=== PATIENT | male | born 1975 | race Caucasian/White ===

== ENCOUNTER 2016-03-30 10:57 | Emergency (ER) | payer OTHER ==
[~2016-03-30] VITALS: Ht 180.3 cm; Wt 77.1 kg
[2016-03-30 10:57] VITALS: BP 134/83; PULSE 112; RESP 26; TEMP 97.8; O2SAT 97
--- NOTE | 2016-03-30 10:57 | NUR ---
BROUGHT BACK TO BED #2 AND TRIAGED. REPORT GIVEN TO TANVIR
--- NOTE | 2016-03-30 11:04 | NUR ---
DR CORTEZ AT BEDSIDE FOR EVALUATION
--- NOTE | 2016-03-30 11:05 | NUR ---
Pt AAOx4 c/o anxiety This AM. Pt h/o anxiety and panic attacks. Pt denies other significant med hx.
[2016-03-30] MEDS ORDERED: LORazepam 2 MG/ML VIAL (FOR ER USE) IVP ONE (11:15)
[2016-03-30] MEDS ORDERED: NACL 0.9% 1,000 ML IV ONE (11:15)
--- NOTE | 2016-03-30 11:23 | NUR ---
# 18 gauge angiocath placed to LAC. Use of asceptic technique. Opsite placed over site. Blood return noted. Blood for lab drawn from site. Flushed with 10 cc of normal saline. No evidence of infiltration noted. Patient tolerated well.
--- NOTE | 2016-03-30 11:50 | NUR ---
Pt tolerated medication well.
[2016-03-30 11:54] LABS: BASOPHILS % (AUTO) 0.4 % (0.0-2.0); EOSINOPHILS # (AUTO) 0.1 K/uL (0.0-0.4); EOSINOPHILS % (AUTO) 1.3 % (0.0-4.0); HEMATOCRIT 45.9 % (36-54); HEMOGLOBIN 15.5 g/dL (14.0-18.0); LYMPHOCYTES # (AUTO) 1.3 K/uL (1.0-5.5); LYMPHOCYTES % (AUTO) 17.7 % (20.5-51.5); MEAN CORPUSCULAR HEMOGLOBIN 32 pg (27-31); MEAN CORPUSCULAR HGB CONC 34 % (32-36); MEAN CORPUSCULAR VOLUME 95 fL (79.0-98.0); MONOCYTES # (AUTO) 0.5 K/uL (0.0-1.0); MONOCYTES % (AUTO) 6.6 % (1.7-9.3); NEUTROPHILS # (AUTO) 5.7 K/uL (1.8-7.7); PLATELET COUNT (AUTO) 239 K/uL (130-430); RED BLOOD CELL COUNT(AUTO) 4.84 MIL/uL (4.2-6.2); RED CELL DISTRIBUTION WIDTH 12.4 % (9.0-15.0); WHITE BLOOD COUNT (AUTO) 7.6 K/uL (4.8-10.8)
[2016-03-30 11:59] LABS: CREATININE 0.96 mg/dL (0.55-1.30); POTASSIUM 3.6 mmol/L (3.5-5.1)
[2016-03-30 12:04] LABS: ALBUMIN 4.2 g/dL (3.4-4.8); TOTAL BILIRUBIN 0.5 mg/dL (0.0-1.0)
--- NOTE | 2016-03-30 12:17 | NUR ---
Pt on stable condition, reports anxiety is improving.
[2016-03-30 12:41] VITALS: BP 124/71; PULSE 78; RESP 19; TEMP 97.2; O2SAT 99
--- NOTE | 2016-03-30 12:41 | NUR ---
Patient given written and verbal discharge instructions and verbalizes understanding. ER MD discussed with patient the results and treatment provided. Given copies of tests performed in ER. Patient in stable condition. ID arm band removed. IV catheter removed intact and dressing applied, no active bleeding. Rx of XANAX given. Patient educated on pain management and to follow up with PMD. Pain Scale 0/10. Opportunity for questions provided and answered.
== END 2016-03-30 12:41 | disposition home or self-care (01) ==
LOC: SED 10:57
DX: F41.0 Panic disorder [episodic paroxysmal anxiety] (principal); R03.0 Elevated blood-pressure reading, without diagnosis of hypertension
CPT/HCPCS: 36415; 71010; 80053; 84484; 85025; 93005; 96361; 96374; 99285; J2060; J7030

== ENCOUNTER 2022-09-15 12:34 | Emergency (ER) | payer BC, OTHER ==
[~2022-09-15] VITALS: Ht 180.3 cm; Wt 81.6 kg
[2022-09-15 12:36] VITALS: BP_SYST 158; PULSE 110; RESP 19; TEMP 98; O2SAT 99
--- NOTE | 2022-09-15 12:42 | NUR ---
Placed in room 02 . Placed on media monitor, blood pressure machine and pulse oximeter. To gown for exam. Side rails up. Report given to VALENTIN SHORT.
--- NOTE | 2022-09-15 12:55 | NUR ---
ER DR. VILLALPANDO AT THE BEDSIDE EXAMINING PT
[2022-09-15] MEDS ORDERED: LORazepam 2 MG/ML VIAL IVP ONE (13:15)
[2022-09-15 13:16] LABS: BASOPHILS % (AUTO) 0.6 % (0.0-2.0); EOSINOPHILS % (AUTO) 0.6 % (0.0-4.0); HEMATOCRIT 45.4 % (36-54); HEMOGLOBIN 15.7 g/dL (14.0-18.0); LYMPHOCYTES # (AUTO) 0.7 K/uL (1.0-5.5); LYMPHOCYTES % (AUTO) 9.2 % (20.5-51.5); MEAN CORPUSCULAR HEMOGLOBIN 36 pg (27-31); MEAN CORPUSCULAR HGB CONC 35 % (32-36); MEAN CORPUSCULAR VOLUME 103 fL (79.0-98.0); MONOCYTES # (AUTO) 0.6 K/uL (0.0-1.0); MONOCYTES % (AUTO) 7.6 % (1.7-9.3); NEUTROPHILS # (AUTO) 6.3 K/uL (1.8-7.7); PLATELET COUNT (AUTO) 200 K/uL (130-430); RED CELL DISTRIBUTION WIDTH 13.3 % (9.0-15.0); WHITE BLOOD COUNT (AUTO) 7.7 K/uL (4.8-10.8)
[2022-09-15 13:30] LABS: ANION GAP 11 (5-15); CALCIUM 9.1 mg/dL (8.4-11.0); CHLORIDE 98 mmol/L (98-107); CREATININE 0.89 mg/dL (0.55-1.30); GFR AFRICAN AMERICAN 118 mL/min (>90); GLUCOSE 134 mg/dL (74-106); UREA NITROGEN, BLOOD 4 mg/dL (8-21)
[2022-09-15 13:41] LABS: ALANINE AMINOTRANSFERASE 153 U/L (12-78); ALBUMIN 3.8 g/dL (3.4-4.8); ASPARTATE AMINOTRANSFERASE 193 U/L (10-37); TOTAL BILIRUBIN 1.3 mg/dL (0.0-1.0)
[2022-09-15 13:43] LABS: ALCOHOL, BLOOD < 3 mg/dL (<10)
--- NOTE | 2022-09-15 14:23 | NUR ---
NO SZ ACTIVITY WHIL EHERE IN ER, PT IN NAD. RESP EVEN AND UNLABORED , ON RA @98%. PT'S BROTHER AT BEDSIDE, CONVERSING WELL.
--- NOTE | 2022-09-15 15:02 | NUR ---
Patient given written and verbal discharge instructions and verbalizes understanding. ER MD discussed with patient the results and treatment provided. Patient in stable condition. ID arm band removed. IV catheter removed intact and dressing applied, no active bleeding.
[2022-09-15 15:03] VITALS: BP_SYST 158; PULSE 81; RESP 20; TEMP 98; O2SAT 99
== END 2022-09-15 15:02 | disposition home or self-care (01) ==
LOC: SED 12:34
DX: R56.9 Unspecified convulsions (principal); R74.01 Elevation of levels of liver transaminase levels; Z79.899 Other long term (current) drug therapy
CPT/HCPCS: 99285; 96374; 70450; 80053; 85025; 36415; 76376; G0482; J2060